=== PATIENT | female | born 2005 | race Caucasian/White ===

== ENCOUNTER 2025-06-12 10:26 | Emergency (ER) | payer BC, SELFPAY ==
--- NOTE | ~2025-06-12 | US_ITS ---
EXAMINATION: US RETROPERITONEAL LIMITED (RENAL ONLY) CLINICAL INFORMATION: Hematuria. Pain. Nausea and vomiting.. COMPARISON: None available. TECHNIQUE: Real-time ultrasound of the kidneys using grayscale technique. FINDINGS: RIGHT KIDNEY: 10 x 4 x 5 cm (SAG x AP x TRV). Normal echotexture. Normal renal cortical thickness. No hydronephrosis. No gross solid or cystic lesion detected. LEFT KIDNEY: 10 x 6 x 5 cm (SAG x AP x TRV). Normal echotexture. Normal renal cortical thickness. No gross solid or cystic lesion. Mild pelvicalyceal ectasia versus extrarenal pelvis. US/US renal BI IMPRESSION: Mild pelvicalyceal ectasia versus extrarenal pelvis, left kidney. Normal right kidney.. Electronically signed by: Carlos Yung MD 06/12/2025 01:59 PM EDT
[2025-06-12 10:34] VITALS: BP 132/84; PULSE 83; RESP 16; TEMP 36.6; O2SAT 100
--- NOTE | 2025-06-12 10:36 | ED.ABDPAIN ---
HPI - Abdominal Pain General Chief Complaint: Abdominal Pain Stated Complaint: abd pain Time Seen by Provider: 06/12/25 11:06 Source: patient and family Mode of arrival: ambulatory Limitations: no limitations History of Present Illness ED Provider: MARLENE HPI narrative: 19 yo female with no sig PMH here with c/o abrupt onset abd pain this AM with n/v. She had a BM last night. She was worried she was constipated but did pass gas. Threw up the laxatives. She denies travel, food exposures, no hx of this and not on her menses. MD elicited complaint: abdominal pain Pertinent past history: none Onset (ago): hour(s) (few) Pain Consistency: constant Location: diffuse Severity: moderate Quality: cramping Radiation: none Migration to: no migration Exacerbating factors: nothing Relieving factors: nothing Associated symptoms: nausea and vomiting Treatments prior to arrival: other Related Data Previous Rx's ?Medication ?Instructions ?Recorded ketorolac 10 mg tablet 10 mg PO TID PRN pain 5 days #15 06/12/25 tabs ondansetron 4 mg disintegrating 4 mg PO Q8H PRN nausea and 06/12/25 tablet vomiting #20 tabs Allergies Allergy/AdvReac Type Severity Reaction Status Date / Time No Known Allergies Allergy Verified 06/12/25 10:35 Review of Systems Review of Systems Constitutional : No Weight loss, No Fever, No Chills ENT/Mouth : No sore throat, No Rhinorrhea Eyes: No Swelling, No Redness Cardiovascular : No Chest Pain, No SOB, NoEdema Respiratory : No Cough, No Sputum, No Wheezing Gastrointestinal : Positive Nausea, Positive Vomiting, no Diarrhea, positive abdominal Pain, No Hematochezia, No Melena Genitourinary : No Dysuria, No Urinary Frequency, No Hematuria, No Urgency Musculoskeletal : No joint pain, No Myalgias, No Joint Swelling Skin : No Skin Lesions, No rash All other systems reviewed and are negative. Yes all other systems are reviewed and are negative [facility] Past Medical History Source: old records reviewed Medical History (Updated 06/12/25 @ 14:57 by Delmi Montiel DO) No pertinent past medical history Social History Social History (Updated 06/12/25 @ 11:53 by Delmi Montiel DO) Patient Tobacco Use Status: Never used Tobacco Advance Directives: No Advance Directives Information Provided: Yes Physical Exam ED Vital Signs: Vital Signs - 24 hr 06/12/25 10:34 06/12/25 13:11 Temperature 98 F 98 F Pulse Rate 83 86 Respiratory Rate 16 16 Blood Pressure 132/84 122/81 Pulse Oximetry 100 98 Oxygen Delivery Method Room Air Room Air BMI result Body Mass Index 30.0 Appearance: Alert. Oriented X3. No acute distress. Eyes: Pupils equal, round and reactive to light. ENT: Pharynx normal. Neck: Normal inspection. Neck supple. CVS: Normal heart rate and rhythm. Pulses normal. Respiratory: No respiratory distress. Breath sounds normal. Abdomen: Soft and moderate diffuse ttp Skin: Skin warm and dry. Normal skin color. Normal skin turgor. Extremities: No lower extremity edema. Neuro: Oriented X 3. No motor deficit. No sensory deficit. CN2-12 intact Course Course Course Narrative: This is an RME: Additional HPI, ROS, PE not included below will be deferred to primary provider. RME assessment and note performed by: Estella Arrington PA-C This is a 19-wfip-phq-female who presents to the ER with complaints of abdominal pain, nausea, and vomiting since last night. Abd is soft, diffuse tenderness throughout. LMP 2 weeks ago. No urinary symptoms. Plan: Labs, UA, further ER eval needed. Medical Decision Making Medical Decision Making [facility] Narrative: 19 yo female no sig PMH here with c/o abrupt onset abd pain and n/v she has diffuse pain there is no localized ttp at this time has some blood in urine will obtain labs, US to rule out renal pathology - IVF, zofran and toradol. Differential Diagnosis Differential Diagnoses: The differential diagnosis associated with the presentation includes viral syndrome, renal colic, no localized ttp to suggest biliary colic or appy Admission/Observation Consideration of admission/observation: Escalation of care including admission/observation considered tolerating PO feels much better, stable for DC Lab Data [facility] Lab Attestation statement: I reviewed the patient's lab results. 06/12/25 10:52 06/12/25 10:52 Labs: Lab Results 06/12/25 06/12/25 Range/Units 10:52 11:08 WBC 10.9 H (4.8-10.8) X10*3/uL RBC 4.57 (4.20-5.50) X10*6/uL Hgb 13.2 (12.0-16.0) g/dl Hct 38.5 (37.0-47.0) % MCV 84.2 (80.0-98.0) fL MCH 28.9 (27.0-33.0) pg MCHC 34.3 (31.0-35.0) g/dl RDW 13.6 (11.0-16.0) % Plt Count 322 (160-400) X10*3/uL MPV 10.2 (9.4-12.3) fL Immature Gran % (Auto) 0.4 (0.0-0.4) % Neut % (Auto) 79.4 H (45-73) % Lymph % (Auto) 14.0 L (20-40) % [place] % (Auto) 5.5 (2-11) % Eos % (Auto) 0.2 (0-4) % Baso % (Auto) 0.5 (0-2) % Lymph # (Auto) 1.5 (1.2-4.9) X10*3/uL [place] # (Auto) 0.6 (0.1-1.2) X10*3/uL Eos # (Auto) 0.0 (0.0-0.4) X10*3/uL Baso # (Auto) 0.1 (0.0-0.2) X10*3/uL Abs Immat Gran (auto) 0.04 H (0.00-0.03) X10*3/uL Absolute Neuts (auto) 8.6 H (2.0-8.3) x10*3/uL Absolute Nucleated RBC 0.000 (0.0-0.012) X10*3/uL Nucleated RBC % (auto) 0.0 (0.0-0.2) /100WBC Sodium 140 (135-145) mmol/L Potassium 3.8 (3.3-5.1) mmol/L Chloride 108 (96-108) mmol/L Carbon Dioxide 24 (22-29) mmol/L Anion Gap 12 (12-20) BUN 10 (9-16) mg/dL Creatinine 0.78 (0.5-1.4) mg/dL Estim Creat Clear Calc 121.4 Estimated GFR > 60 Random Glucose 114 (60-115) mg/dL Calcium 9.1 (8.4-10.2) mg/dL Magnesium 2.0 (1.6-2.6) mg/dL Total Bilirubin 0.6 (0.0-1.0) mg/dL Direct Bilirubin 0.2 (0.0-0.5) mg/dL AST 21 (5-31) U/L ALT 19 (0-31) U/L Alkaline Phosphatase 89 (39-117) U/L C-Reactive Protein 0.38 (< or = 0.50) mg/dL Total Protein 7.2 (6.5-8.0) g/dL Albumin 4.5 (3.5-5.0) g/dL Lipase 15 (8-78) U/L Beta HCG, Quant < 2 mIU/mL Urine Color Dark Yellow Urine Appearance Turbid Urine pH >= 9.0 (5.0-9.0) Ur Specific [place] 1.020 (1.005-1.025) Urine Protein 30 (1+) H (Neg-Trace) mg/dL Urine Glucose (UA) Negative (Negative) mg/dL Urine Ketones Trace (Negative) mg/dL Urine Blood Large (3+) H (Negative) Urine Nitrite Negative (Negative) Ur Leukocyte Esterase Small (1+) H (Negative) Urine RBC >20 H (0-2) /HPF Urine WBC 0-5 (0-5) /HPF Ur Squamous Epith Cells 3-5 (0-2) /HPF Urine Bacteria 1+ (None Seen) Hyaline Casts 0-2 (0-2) /LPF Independent Interpretation I performed an independent interpretation of an: Ultrasound (no obstruction) Radiology Impression Discussion of test interpretation with radiology: I have reviewed the radiologist's reading. Independent Historian Clinical information obtained from an independent historian. History obtained from or confirmed by: Parent Prescription Management I considered prescription management with: Other Medications Administered Discontinued Medications Generic Name Dose Route Start Last Admin Trade Name Freq PRN Reason Stop Dose Admin Lactated Ringer's 1,000 mls @ 999 mls/hr 06/12/25 11:19 06/12/25 14:07 Lr IV 06/12/25 12:19 999 mls/hr .Q1H1M ONE Administration Ketorolac Tromethamine 15 mg 06/12/25 11:19 06/12/25 14:07 Ketorolac Tromethamine 15 Mg/Ml Vial IVPUSH 06/12/25 11:20 15 mg ONCE ONE Administration Ondansetron HCl 4 mg 06/12/25 11:19 06/12/25 14:09 Ondansetron Hcl 4 Mg/2 Ml Vial IVPUSH 06/12/25 11:20 4 mg ONCE ONE Administration Discharge Plan Discharge Clinical Impression: Abdominal pain Qualifiers: Abdominal location: generalized Qualified Code(s): R10.84 - Generalized abdominal pain Nausea & vomiting Qualifiers: Vomiting type: unspecified Qualified Code(s): R11.2 - Nausea with vomiting, unspecified Patient Disposition: Home, Self-Care Instructions: Acute Nausea and Vomiting (ED), Abdominal Pain (ED) Additional Instructions: labs reassuring neg test neg inflammatory markers no UTI you have small amount of blood in your urine your ultrasound shows no obstruction or stone please monitor your symptoms do not take any other over the counter medications but tylenol with the ketorolac return for pain localized to right upper abdomen, right lower abdomen, bloody stools, fevers over 100.4, or any other concerns. Prescriptions: New ketorolac 10 mg tablet 10 mg PO TID PRN (Reason: pain) 5 Days Qty: 15 0RF Rx Instructions: given IV toradol in department ondansetron 4 mg tablet,disintegrating 4 mg PO Q8H PRN (Reason: nausea and vomiting) Qty: 20 0RF Stand Alone Forms: Work/School Release Print Language: Anguillan
[2025-06-12 11:07] LABS: MANUAL DIFF FLAG NO
[2025-06-12 11:09] LABS: Hematocrit 38.5 % (37.0-47.0); Hemoglobin 13.2 g/dl (12.0-16.0); Imm Gran Abs Auto 0.04 X10*3/uL (0.00-0.03); Imm Gran Pct Auto 0.4 % (0.0-0.4); Lymphocytes Absolute Auto 1.5 X10*3/uL (1.2-4.9); Mean Corpuscular HGB Conc 34.3 g/dl (31.0-35.0); Mean Corpuscular Hemoglobin 28.9 pg (27.0-33.0); Mean Corpuscular Volume 84.2 fL (80.0-98.0); NRBC Abs Auto 0.000 X10*3/uL (0.0-0.012); NRBC Pct Auto 0.0 /100WBC (0.0-0.2); Platelet Count 322 X10*3/uL (160-400); Red Blood Count 4.57 X10*6/uL (4.20-5.50); White Blood Count 10.9 X10*3/uL (4.8-10.8)
[2025-06-12 11:26] LABS: Appearance Urine Turbid; Glucose Urine UA Negative (Negative); PH >= 9.0 (5.0-9.0); Specific Gravity - Urine 1.020 (1.005-1.025); UMIC TRIGGER UACC YES
[2025-06-12 11:30] LABS: UACC Culture Trigger YES
[2025-06-12 11:31] LABS: Alanine Aminotransferase 19 U/L (0-31); Albumin Level 4.5 g/dL (3.5-5.0); Alkaline Phosphatase 89 U/L (39-117); Anion Gap 12 (12-20); Aspartate Amino Transferase 21 U/L (5-31); Blood Urea Nitrogen 10 mg/dL (9-16); Calcium 9.1 mg/dL (8.4-10.2); Carbon Dioxide 24 mmol/L (22-29); Chloride 108 mmol/L (96-108); Creatinine Clr Calc Pharmacy 121.4; Estimated Glomerular Filt Rate > 60; Lipase 15 U/L (8-78); Magnesium 2.0 mg/dL (1.6-2.6); Potassium 3.8 mmol/L (3.3-5.1); Sodium 140 mmol/L (135-145); Total Protein 7.2 g/dL (6.5-8.0)
[2025-06-12 13:11] VITALS: BP 122/81; PULSE 86; RESP 16; TEMP 36.6; O2SAT 98
--- OUTSIDE RECORDS SUMMARY | 2025-06-12 13:33 | XMS_ITS | Encounter Summary ---
Author Organization [facility] Address [address] [place] [address] Phone Care Team Providers Care Transport Analyst Name Role Phone Provider, Juan R GRIGSBY Primary Care Provider [phone] Encounter Details Date Type Department Care Team (Late st Contact Info) Description 05/11/2017 Conversion Encounter [facility] [place] [address] [place] [address] Social History Tobacco Use Types Packs/Day Years Used Date Smoking Tobacco: Never Assessed Comments Unknown Sex and Gender Information Value Date Recorded Sex Assigned at Female 04/24/2020 1:53 PM EDT Legal Sex Female 4:54 PM EDT Gender Identity Female 04/24/2020 1:53 PM EDT Sexual Orientation Straight 04/24/2020 1: 53 PM EDT documented as of this encounter Plan of Treatment Not on file documented as of this encounter Visit Diagnoses Not on filedocumented in this encounter Care Teams Transport Analyst Relationship Specialty Start Date End Date Provider, MD Juan R [address] [place] [address] PCP - General Pediatrics 02/23/22 07/30/24 documented as of this encounter
--- OUTSIDE RECORDS SUMMARY | 2025-06-12 13:33 | XMS_ITS | Clinical Summary ---
Author Organization [facility] Address [address] [place] [address] Phone Care Team Providers Care Balance Truing Inspector Name Role Phone Unavailable Primary Care Provider Unavailabl e Allergies No known active allergies Medications Rosie-28 0.15-30 MG-MCG per tabletIndications :Encounter for surveillance of contraceptive pills TAKE 1 TABLET BY MOUTH ONCE DAILY AT APPROXIMATELY THE SAME TIME EACH DAY 84 tablet 3 07/01/20 22 Active Active Problems Problem Noted Date Diagnosed Date COVID-19 06/20/2022 Failed vision screen 05/28/2021 Assessment & Plan (05/28/2021 1:44 PM EDT): To see opho Encounter for surveillance of contraceptive pill s 05/20/2020 Assessment & Plan (01/04/2022 12:36 PM EDT): Has break through bleeding on current OCP. Given late cycle breakthrough bleeding will change to higher progestin pill Discussed other options as well including patchy, nexplanon and IUD. Pt will try the new pill, track breakthrough bleeding and follow up as needed. Assessment & Plan (07/30/2020 5:25 PM EST): Overall doing well on the OCP. Discussed how to tell when in her cycle she is bleeding and suggested she keep a diary Will refill for the coming year. To follow up for any concerns. Assessment & Plan (05/20/2020 4:28 PM EDT): control hormone pills discussed and ordered There is no family history of blood clots. Side effects reviewed - mild nausea, breast tenderness, spotting. If any of these or other symptoms are severe, please call our office. If you have severe pain in you head, chest, abdomen or calf, go to the ER. This is signs and symptoms of a blood clot which is rare but can happen in people taking control pills. Start control pills on the Monday after your next period starts. Take one pill every day about the same time. If you miss a pill take it as soon as you remember. Take no more than 2 pills on the same day. The Pill is not effective in preventing during the first month you are on it. If sexually active, always use a condom to prevent sexually transmitted infection. Schedule a follow-up appointment in 3 months. Irritability and anger 04/24/2020 Overview (06/20/2022): Pt reports concern re her anger. Says this has been a long standing issue. Has not hurt anyone (used to bite when she was much younger. Describes crying easily. 06/20/2022 PHQ9 positive, declines therapy, senior, boyfriend going to [employer], no stressors. Assessment & Plan (07/30/2020 5:22 PM EST): Pt says she still is dealing with feeling henson. I suggested she talk with her parents about seeing one of our behavioral health therapists to further discuss. She says that they just tell her she is being melodramatic. I will have someone in our office call her parents to help set up an appointment and Bella says she will talk with her parents about this. Assessment & Plan (04/24/2020 3:20 PM EDT): Pt reports concern re her anger. Says this has been a long standing issue. Has not hurt anyone (used to bite when she was much younger. Describes crying easily. Wants to talk with someone. Referred for behavioral health. Dysmenorrhea in adolescent 12/27/2017 Assessment & Plan (05/28/2021 1:36 PM EDT): Doing well on OCP Assessment & Plan (07/30/2020 5:20 PM EST): Has been taking OCP for 3 months and feels that her menses is not as heavy as it was, and is less painful. No other concerns. No side effects noted OCP refill done. Assessment & Plan (04/24/2020 3:19 PM EDT): Wants to start on OCP for irregular and painful menses. Will schedule an appt to discuss further Assessment & Plan (01/21/2019 10:23 AM EDT): Menses seems irregular, not too heavy and is occas crampy. Assessment & Plan (12/27/2017 3:25 PM EDT): Just started having painful menses. Discussed ibuprofen 600 mg every 6hrs, hot water bottle etc. OCP use discussed as well. Not currently indicated. Bella will follow up if needed. Resolved Problems Problem Noted Date Diagnosed Date Resolved Date Influenza vaccine refused 07/26/2019 Overview (07/26/2019): 08/13 Pain in toe of left foot 12/27/2017 Overview (12/27/2017): painful 2nd toe on left foot when dancing. Toe appears normal. does not always hurt. consider podiatry. f/u as needed. Wears glasses 10/10/2013 12/27/2017 Immunizations Immunization Administration Dates Next Due DTaP / Hep B / IPV 05/12/2005,03/03/2005, 005 DTaP 5 10/27/2008,05/08/2006 H1N1 11/05/2009 HPV Vaccine 9 Valent 06/19/2017,12/15/2016 Hep A, ped/adol 12/10/2015,11/27/2014 Hep B, ped/adol 2004 Hib (HbOC) 05/12/2005,03/03/2005,2004 Hib (PRP-T) 02/13/2006 IPV 10/27/2008 Influenza, injectable, quadr ivalent, preservative free 06/20/2022,05/28/2021,09/14/2020,10/10 Influenza, injectable, trivalent 11/05/2009,09/27,08/11/2005 Influenza, intranasal, trivalent 10/08/2012 MMR 10/27/2008,10/24/2005 Meningococcal Conj (Menactra) MCV4P 05/28/2021,0 12/10/2015 Pneumococcal Conjugate 02/13/2006,2004,03/03/2005,12/23 Tdap 12/10/2015 Varicella 10/27/2008,10/24/2005 Family History Medical History Relation Name Comments Hyperlipidemia Father Laazro Prostate cancer Father Lazaro Alcoholism Maternal Grandfather Cancer Maternal Grandfather Heart attack Maternal Grandfather Obesity Maternal Grandfather Brain cancer Maternal Grandmother No Known Problems Mother Jany Relation Name Status Comments Father Lazaro Alive Maternal Grandfather Maternal Grandmother Alive Mother Jany Alive Other No family histo ry of Obesity, Family history of Hyperlipidemia, No family history of Deafness, Family history of Asthma, No family history of Diabetes mellitus, No family history of *Dental caries, No family history of Strabismus, Family history of Cancer, prostate, No family history of *CVA/Stroke, Family history of Allergies, Family history of Hypertension, No family history of Seizure disorder, No family history of *Heart Disease, No family history of Developmental dislocation of hip, No family history of ADD/ADHD, No family history of *Thrombophilia, No family history of Migraines, No family history of *Sudden /[place] under 55 Paternal Grandfather Alive Paternal Grandmother Alive Sister Juhi Alive Social History Tobacco Use Types Packs/Day Years Used Date Smoking Tobacco: Never Smokeless Tobacco: Never Alcohol Use Standard Drinks/Week Comments No 0 (1 standard drink = 0.6 oz pur e alcohol) Hunger/Food Answer Date Recorded In the last 12 months, did y ou or your family ever eat less than you felt you should because there wasn't enough money for food? No 06/20/2022 Stable Housing Answer Date Recorded Are you worried that in the next 2 months you may not have stable housing? No 06/20/2022 Transportation Concerns Answer Date Rec orded In the last 12 months, have you or your family ever had to go without healthcare because you didn't have a way to get there? No 06/20/2022 Hazards in Home Answer Date Recorded Think about the place you li ve. Do you have problems with any of the following? Pests (mice or roaches), mold, no/not working smoke detectors, water leaks, no window guards. No 2021 Financing Utilities Answer Date Recorde d In the last 12 months, has t he electric, gas, oil, or water company threatened to shut off your services in your home? No 06/20/2022 Safety at Home Answer Date Recorded Are you or your family worried about feeling saf e in your home? No 06/20/2022 Outside Support Answer Date Recorded Do you feel that you need mo re support from other people or programs to help you care for yourself or your family? No 06/20/2022 Understanding Health Concerns Answer Da te Recorded Do you need help understandi ng your or your child's healthcare needs (diagnosis, medications, plan, etc.)? No 06/20/2022 Financing Health Concerns Answer Date R ecorded In the last 12 months, was t here a time when your child needed to see a doctor or get medications or supplies but could not because of cost? No 06/20/2022 Missing School or Work Answer Date Jasmeet rded Did you or your child miss s chool or work because of a health problem that could have been avoided? No 06/20/2022 Comments No Sex and Gender Information Value Date Recorded Sex Assigned at Female 04/24/2020 1:53 PM EDT Legal Sex Female 4:54 PM EDT Gender Identity Female 04/24/2020 1:53 PM EDT Sexual Orientation Straight 04/24/2020 1: 53 PM EDT Last Filed Vital Signs Vital Sign Reading Time Taken Comments Blood Pressure 111/73 06/20/2022 9:19 AM EDT Pulse 76 06/20/2022 9:19 AM EDT Temperature 36.8 C (98.2 F) 06/20/2022 9:19 AM EDT Respiratory Rate - - Oxygen Saturation - - Inhaled Oxygen Concentration - - Weight 67.8 kg (149 lb 8 oz) 06/20/2022 9:19 AM EDT Height 166.4 cm (5' 5.5 ) 06/20/2022 9:19 AM EDT Body Mass Index 24.5 06/20/2022 9:19 AM EDT Plan of Treatment Health Maintenance Due Date Last Done Comments Men B Vaccine (1 of 2 - Standard) 2020 Influenza Vaccines (#1) 2025 06/20/20 22, 05/28/2021, 09/14/2020, Additional history exists COVID-19 Vaccine (3 - 2024-2 6 season) 2025 03/04/2021, 02/07/2021 DTaP,Tdap,and Td Vaccines (7 - Td or Tdap) 12/09/2025 12/10/2015, 10/27/2008, 05/08/2006, Additional history exists Hepatitis B Vaccines Completed 05/12/2005, 03/03/2005, 2004, Additional history exists HIB Vaccines Completed 02/13/2006, 04/25, 03/03/2005, Additional history exists Pneumococcal Vaccine Completed 02/13/2006, 05/12/2005, 03/03/2005, Additional history exists IPV Vaccines Completed 10/27/2008, 04/25, 03/03/2005, Additional history exists MMR Vaccines Completed 10/27/2008, 10/24/2005 Varicella Vaccines Completed 10/27/2008, 10/24/2005 Hepatitis A Vaccines Completed 12/10/2015, 11/28/19 15 HPV Vaccines Completed 06/19/2017, 12/15/2016 Meningococcal Vaccine Completed 05/28/2021, 016 Procedures * Due to [place] law, this organization might not be sharing sensitive test results. Procedure Name Priority Date/Time Associated Diagnosis Comments CHLAMYDIA AND GONORRHEA, AMPLIFIED Routine 06/20/2022 10:38 AM EDT Screening for chlamydial disease from Last 3 Months or Most Recently Relevant to Health Maintenance Results * Due to [place] law, this organization might not be sharing sensitive test results. * Chlamydia and Gonorrhoea, Amplified (06/20/2022 10:38 AM EDT) Chlamydia Trachomatis, DNA Probe NEGATIVE (NEG) [facility] Comment: No Chlamydia Trachomatis RNA detected in this patient's sample (REFERENCE RANGE/NORMAL VALUE: NOT DETECTED) Note: This test uses stock roller- mediated amplification method to detect rRNA from C. Trachomatis URINE GC AMP PROBE NEGATIVE (NEG) [facility] Comment: No Neisseria Gonorrhoeae RNA detected in this patient's sample (REFERENCE RANGE/NORMAL VALUE: NOT DETECTED) NOTE: This test uses stock roller-mediated amplification method to detect rRNA from N.Gonorrhoeae. A negative result does not preclude infection. In the case of a negative urine result, testing of an endocervical(female) or urethral (male) specimen is recommended if there is high clinical suspicion of infection. Due to very high sensitivity of Nucleic Acid Amplification Test, false positive results may occur. Therefore, specimen handling is extremely important. In patients in whom the disease is unlikely, additional sample for testing should be considered after an initial positive result. The performance characteristics of this test have not been evaluated in children. The Aptima Combo2 assay is not intended for the evaluation of suspected sexual abuse or for other medico-legal indications. The ordering provider should assess if the patient had consensual sex without risk of sexual abuse. Consult the [facility] if needed. Contact phone number . Therapeutic failure or success cannot be determined with the Aptima Combo2 assay since nucleic acid may persist following appropriate antimicrobial therapy. The Centers for Disease Control and Prevention (CDC) recommends confirmatory retesting using culture or a different nucleic acid amplification test when positive results occur, if indicated. Testing performed or reported by [facility], a Service of [facility], [facility] [place] [address] Ortiz Yousif MD, [employer] Flap Trimmer [facility]# [id number] Urine (Urine) 06/20/2022 10: 38 AM EDT 06/20/2022 3:16 PM EDT us Sarabjit Beckford MD LAB MICROBIOLOGY - GENER AL ORDERABLES Final Result [facility] from Last 3 Months or Most Recently Relevant to Health Maintenance Insurance [facility] PPO
--- OUTSIDE RECORDS SUMMARY | 2025-06-12 13:33 | XMS_ITS | Encounter Summary ---
Author Organization [facility] Address [address] [place], [place] [address] Phone Care Team Providers Care Major Case Detective Name Role Phone ProviderJuan R MD Primary Care Provider [phone] Encounter Details Date Type Department Care Team (Late st Contact Info) Description 08/04/2014 Documentation [facility] Family Medicine [address] [place] [address] Family Medicine, Physician [address] [place] [id number] Social History Tobacco Use Types Packs/Day Years [...] on filedocumented in this encounter Care Teams Major Case Detective Relationship Specialty Start Date End Date Provider, MD Juan R [address] [place] [address] PCP - General Pediatrics 02/23/22 07/30/24 documented as of this encounter
--- OUTSIDE RECORDS SUMMARY | 2025-06-12 13:33 | XMS_ITS | Encounter Summary ---
Author Organization [facility] Address [address] [place] [id number] Phone Care Team Providers Care Medical Records Field Technician Name Role Phone Provider, Juan R GRIGSBY Primary Care Provider [phone] Reason for Visit * Reason Onset Date Comments Med Refill 01/10/2022 Encounter Details Date Type Department Care Team (Late st Contact Info) Description 01/10/2022 Refill [facility] [place] [address] [place] [address] Marianela Sandy MD [address] [place] [address] Encounter for surveillance of contraceptive pills Social History Tobacco Use Types Packs/Day Years Used Date Smoking Tobacco: Never Smokeless Tobacco: Never Alcohol Use Standard Drinks/Week Comments No 0 (1 standard drink = 0.6 oz pur e alcohol) Hunger/Food Answer Date Recorded In the last 12 months, did y ou or your family ever eat less than you felt you should because there wasn't enough money for food? No 05/28/2021 Stable Housing Answer Date Recorded Are you worried that in the next 2 months you may not have stable housing? No 05/28/2021 Transportation Concerns Answer Date Rec orded In the last 12 months, have you or your family ever had to go without healthcare because you didn't have a way to get there? No 05/28/2021 Hazards in Home Answer Date Recorded Think about the place you li ve. Do you have problems with any of the following? Pests (mice or roaches), mold, no/not working smoke detectors, water leaks, no window guards. No 2020 Financing Utilities Answer Date Recorde d In the last 12 months, has t he electric, gas, oil, or water company threatened to shut off your services in your home? No 05/28/2021 Safety at Home Answer Date Recorded Are you or your family worried about feeling saf e in your home? No 05/28/2021 Outside Support Answer Date Recorded Do you feel that you need mo re support from other people or programs to help you care for yourself or your family? No 05/28/2021 Understanding Health Concerns Answer Da te Recorded Do you need help understandi ng your or your child's healthcare needs (diagnosis, medications, plan, etc.)? No 05/28/2021 Financing Health Concerns Answer Date R ecorded In the last 12 months, was t here a time when your child needed to see a doctor or get medications or supplies but could not because of cost? No 05/28/2021 Missing School or Work Answer Date Jasmeet rded Did you or your child miss s chool or work because of a health problem that could have been avoided? No 05/28/2021 Comments No Sex and Gender Information Value Date Recorded Sex Assigned at Female 04/24/2020 1:53 PM EDT Legal Sex Female 4:54 PM EDT Gender Identity Female 04/24/2020 1:53 PM EDT Sexual Orientation Straight 04/24/2020 1: 53 PM EDT documented as of this encounter Miscellaneous Notes * Telephone Encounter - Carole Street MD - 01/11/2022 12:23 PM EDT Script sent for enough med to last until next [facility]. PPP * Telephone Encounter - Miguel Fisher LPN - 01/11/2022 8:25 AM EDT PPP PCP METALWORKER: Pt requesting refill of Levora via mychart. Last PE 05/28/21, last Med check 12/29/21 documented in this encounter Plan of Treatment Not on file documented as of this encounter Visit Diagnoses Diagnosis Encounter for surveillance of contraceptive pills documented in this encounter Care Teams Medical Records Field Technician Relationship Specialty Start Date End Date Provider, Hpa, MD [address] [place] [address] PCP - General Pediatrics 02/23/22 07/30/24 documented as of this encounter
--- OUTSIDE RECORDS SUMMARY | 2025-06-12 13:33 | XMS_ITS | Clinical Summary ---
Author Organization [facility] Address [address] [place] [phone] Phone Care Team Providers Care Senior Wind Energy Consultant Name Role Phone Unknown, Unknown Primary Care Provider Will toussaint Immunizations Immunization Administration Dates Next Due COVID-19 (Pre-07/17) Pfizer Vaccine, mRNA, PF ,02/07/2021 Social History Tobacco Use Types Packs/Day Years Used Date Smoking Tobacco: Never Assessed Education Answer Date Recorded Are you interested in more education? Not on quinn e 01/21/2023 Are you concerned about learning? Not on file 01/21/2023 No 01/21/2023 No 01/21/2023 Digital Access Answer Date Recorded No 02/18/2023 No 02/18/2023 No 02/18/2023 Reliable internet access at home? Not on file 02/18/2023 Device with a working camera? Not on file Comments Unknown Sex and Gender Information Value Date Recorded Sex Assigned at Not on file Legal Sex Female 11:34 AM EDT Gender Identity Not on file Sexual Orientation Not on file Plan of Treatment Health Maintenance Due Date Last Done Comments DEVELOPMENTAL/BEHAVIORAL SCREENING (PHQ, PSC, or SWYC) 2007 DEPRESSION SCREENING 2016 SMOKING Hx and SMOKELESS TOBACCO SCREENING 2017 CHLAMYDIA SCREENING 2020 MENINGOCOCCAL VACCINES (B) (1 of 2 - Standard) 2020 ADOLESCENT UNIVERSAL LIPID SCREENING 2021 HEPATITIS C SCREENING 2022 HIV ONE-TIME SCREENING (18-65 YEARS) 2022 INFLUENZA VACCINE (#1) 2025 , 10/10/2013, 10/08/2012, Additional history exists COVID-19 VACCINE ( season) 2025 03/04/2021, 02/07/2021 COMBINED DTaP,Tdap,Td (7 - Td or Tdap) 12/09/2025 12/10/2015, 10/27/2008, 05/08/2006, Additional history exists HIB VACCINES Completed 02/13/2006, 04/25, 03/03/2005, Additional history exists PNEUMOCOCCAL VACCINES (0-49 years) Aged Out 02/13/2006, 05/12/2005, 03/03/2005, Additional history exists No longer eligible based on patient's age to complete this topic MMR VACCINES Completed 10/27/2008, 10/24/2005 VARICELLA VACCINES Completed 10/27/2008, 10/24/2005 HEPATITIS A VACCINES Completed 12/10/2015, 11/28/19 15 MENINGOCOCCAL VACCINES (ACWY) Aged Out 12/10/2015 No longer eligible based on patient's age to complete this topic HPV VACCINES Completed 06/19/2017, 12/15/2016 Medical Devices Not on file Care Teams Senior Wind Energy Consultant Relationship Specialty Start Date End Date Unknown, Unknown, PCP - General 02/07/21 Additional Source Comments The information contained in this document represents components of the legal health record. It is not the complete legal health record.[facility]
[2025-06-12] MEDS: Lactated Ringers 1,000 ML 999 ML IV (14:07)
== END 2025-06-12 20:59 | disposition home or self-care (01) ==
PROVIDERS: Physician Assistant Medical; Emergency Provider Emergency Medicine; PCP Nurse Practitioner Family
DX: R52 Pain, unspecified (principal); R11.2 Nausea with vomiting, unspecified
CPT/HCPCS: 36415; 76775; 80048; 80076; 81001; 83690; 83735; 84702; 85025; 86140; 87086; 96361; 96374; 96375; 99284; J1885; J2405; J7120

== ENCOUNTER → 2025-06-12 11:51 | Outpatient (BNV) | payer BC, SELFPAY | PROVIDERS: Emergency Provider Emergency Medicine; PCP Nurse Practitioner Family; Visit Provider Radiology Diagnostic Radiology | DX: R31.0 Gross hematuria (principal) | CPT/HCPCS: 76775 ==